=== PATIENT | male | born 1995 | race African-American/Black ===

== ENCOUNTER 2018-03-14 22:45 | Emergency (ER) | payer SELFPAY ==
[2018-03-14] MEDS ORDERED: Lidocaine 1% PF 5 ML VIAL ONE (23:46)
[2018-03-14] MEDS ORDERED: Azithromycin 250 MG TAB ONE (23:46)
[2018-03-14] MEDS ORDERED: cefTRIAXone\\ROCEPHIN 250 MG VIAL ONE (23:46)
[2018-03-15 00:17] LABS: Bilirubin Negative (Negative); Blood, Urine Negative (Negative); Clarity Clear (Clear); Glucose, Urine (Dipstick) Negative (Negative); Leukocyte Negative (Negative); Nitrite Negative (Negative); Protein, Urine (Dipstick) Trace mg/dL (Neg-Trace); Urobilinogen 0.2 mg/dL (0.2-1.0)
[2018-03-15 00:20] LABS: Specific Gravity, Urine 1.032 (1.002-1.036)
[2018-03-15 22:46] LABS: Chlamydia by PCR Not Detected (NotDetected); GC by PCR Not Detected (NotDetected)
== END 2018-03-15 00:54 | disposition home or self-care (01) ==
LOC: SCSER 22:45
DX: N34.1 Nonspecific urethritis (principal); G43.909 Migraine, unspecified, not intractable, without status migrainosus; Z79.82 Long term (current) use of aspirin
CPT/HCPCS: 81003; 87086; 87491; 87591; 96372; J0696; J2001